=== PATIENT | female | born 1995 ===

== ENCOUNTER → 2025-01-15 | Outpatient (REF) | payer OTHER ==
[2025-01-15 21:21] LABS: Trichomonas vaginalis (AMP) NOT DETECTED (NEGATIVE)
[2025-01-15 21:44] LABS: GC DNA AMPLIFICATION NEGATIVE (NEGATIVE)
== END ==
LOC: M LAB REF 19:39
PROVIDERS: ATTEND Physician Assistant
DX: R10.30 Lower abdominal pain, unspecified (principal)